=== PATIENT | female | born 1990 | race Asian ===

== ENCOUNTER 2023-12-18 06:07 | Day surgery (SDC) | payer OTHER ==
[2023-12-12 11:33] LABS: BASOPHILS # (AUTO) 0.1 K/uL (0.0-0.2); BASOPHILS % (AUTO) 0.9 % (0.0-2.0); EOSINOPHILS # (AUTO) 0.1 K/uL (0.0-0.4); EOSINOPHILS % (AUTO) 1.2 % (0.0-4.0); HEMATOCRIT 33.9 % (36-48); HEMOGLOBIN 10.6 g/dL (12.0-16.0); LYMPHOCYTES # (AUTO) 1.8 K/uL (1.0-5.5); LYMPHOCYTES % (AUTO) 27.7 % (20.5-51.5); MEAN CORPUSCULAR HEMOGLOBIN 25 pg (27-31); MEAN CORPUSCULAR HGB CONC 31 % (32-36); MEAN CORPUSCULAR VOLUME 80 fL (79.0-98.0); MONOCYTES # (AUTO) 0.4 K/uL (0.0-1.0); MONOCYTES % (AUTO) 5.8 % (1.7-9.3); NEUTROPHILS # (AUTO) 4.2 K/uL (1.8-7.7); NEUTROPHILS % (AUTO) 64.4 % (40.0-70.0); PLATELET COUNT (AUTO) 430 K/uL (130-430); RED BLOOD CELL COUNT(AUTO) 4.23 MIL/uL (4.2-6.2); RED CELL DISTRIBUTION WIDTH 22.3 % (9.0-15.0); WHITE BLOOD COUNT (AUTO) 6.5 K/uL (4.8-10.8)
[2023-12-12 12:15] LABS: BILIRUBIN,URINE NEGATIVE (NEGATIVE); BLOOD, URINE NEGATIVE (NEGATIVE); CLARITY/URINE CLEAR (CLEAR); COLOR,URINE YELLOW (YELLOW); GLUCOSE,URINE NEGATIVE (NEGATIVE); KETONES,URINE NEGATIVE (NEGATIVE); LEUKOCYTE ESTERASE ,URINE NEGATIVE (NEGATIVE); NITRITE, URINE NEGATIVE (NEGATIVE); PH,URINE 5.5 (5.0-8.0); PROTEIN URINE NEGATIVE (NEGATIVE); UROBILINOGEN,URINE 0.2 (0.2-1.0)
[~2023-12-18] VITALS: Ht 162.6 cm; Wt 74.8 kg
[2023-12-18] MEDS ORDERED: CEFAZOLIN SOD 2 GM in D5W 50 ML IV ONE (07:00)
[2023-12-18 07:01] LABS: HCG,QUAL RESULT NEGATIVE (NEGATIVE)
[2023-12-18] MEDS ORDERED: fentaNYL CITRATE/PF 100 MCG/2 ML AMP ONE ×2 (07:35)
[2023-12-18] MEDS ORDERED: ACETAMINOPHEN I.V. 1000 MG 100 ML IV ONE (07:36)
[2023-12-18] MEDS ORDERED: MIDAZOLAM HCL 2 MG/2 ML VIAL (VERSED) ONE (07:36)
[2023-12-18] MEDS ORDERED: NEOSTIGMINE METHYLSULFATE 1 MG/ML, 10 ML VIAL ONE (07:45)
[2023-12-18] MEDS ORDERED: LR 1,000 ML IV.SOLN IV ONE (07:45)
[2023-12-18] MEDS ORDERED: NS IRRIG SOLN 1000 ML IR ONE (07:45)
[2023-12-18] MEDS ORDERED: ROPIVACAINE HCL/PF 5 MG/ML 0.5% 30 ML VIAL ONE (07:45)
[2023-12-18] MEDS ORDERED: ROCURONIUM BROMIDE 10 MG/ML (ZEMURON) ONE (07:45)
[2023-12-18] MEDS ORDERED: ONDANSETRON HCL 4 MG/2 ML VIAL ONE (07:45)
[2023-12-18] MEDS ORDERED: GLYCOPYRROLATE 0.2 MG/ML VIAL ONE (07:45)
[2023-12-18] MEDS ORDERED: PROPOFOL 200MG/ 20ML VIAL (DIPRIVAN) IV ONE (07:45)
[2023-12-18] MEDS ORDERED: SEVOFLURANE 15 MIN GAS INH ONE (07:45)
[2023-12-18] MEDS ORDERED: DEXAMETHASONE SOD PHOSPHATE 4 MG/ML VIAL ONE (07:45)
[2023-12-18] MEDS ORDERED: BUPIVACAINE /EPINEPHRINE/PF 0.25% 30 ML VIAL ONE (07:45)
[2023-12-18] MEDS ORDERED: WATER FOR IRRIGATION,STERILE 1,000 ML IRRIG.SOLN IR ONE (07:45)
[2023-12-18] MEDS ORDERED: ceFAZolin SODIUM 2 GM VIAL ONE (07:45)
[2023-12-18] MEDS ORDERED: fentaNYL CITRATE/PF 100 MCG/2 ML AMP IVP PRN ×2 (08:15)
[2023-12-18] MEDS ORDERED: LR 1,000 ML IV ONE (08:15)
[2023-12-18] MEDS ORDERED: HYDROmorphone 1 MG/ML INJ. CARTRIDGE IVP PRN (08:15)
[2023-12-18] MEDS ORDERED: ONDANSETRON HCL 4 MG/2 ML VIAL IVP PRN ×2 (08:15→12:15)
[2023-12-18] MEDS ORDERED: HYDROcodone/ACETAMIN 5-325 MG TAB (NORCO/ VICODIN) PO PRN (12:15)
[2023-12-18] MEDS ORDERED: OXYCODONE/ACETAMINOPHEN 5-325 TABLET PO PRN ×2 (12:15)
[2023-12-18 13:06] VITALS: O2SAT 98
[2023-12-18] MEDS: HYDROmorphone 1 MG/ML INJ. CARTRIDGE ONE (13:25)
[2023-12-18] MEDS ORDERED: SIMETHICONE 80 MG TAB.CHEW ONE (14:53)
[2023-12-18] MEDS: SIMETHICONE 80 MG TAB.CHEW PO SCH (15:05)
[2023-12-18] MEDS: ONDANSETRON HCL 4 MG/2 ML VIAL ONE (15:05)
[2023-12-18] MEDS: OXYCODONE/ACETAMINOPHEN 5-325 TABLET ONE (15:05)
[2023-12-18 15:08] VITALS: BP_SYST 115; PULSE 70; RESP 18; TEMP 98.7
== END 2023-12-18 18:25 | disposition home or self-care (01) ==
LOC: SDS 06:07 → SMU 06:07 → SDS 18:25
PROVIDERS: ATTEND Specialist
DX: N92.6 Irregular menstruation, unspecified (principal); N80.9 Endometriosis, unspecified; D25.1 Intramural leiomyoma of uterus; N83.202 Unspecified ovarian cyst, left side; N83.201 Unspecified ovarian cyst, right side; N73.6 Female pelvic peritoneal adhesions (postinfective); D64.9 Anemia, unspecified; Z79.899 Other long term (current) drug therapy
CPT/HCPCS: 81001; 84702; 85025; 87081; 36415; 81003; 58546; 64488; 58662; 84703; 88305; J3490 ×2; J0690; J1100; J2250; J2405; J2704; J3010; J1170; J7060; J7120; C1727; J0131; S2900; J2710